=== PATIENT | male | born 1975 | race Caucasian/White ===

== ENCOUNTER 2024-08-22 13:26 | Emergency (ER) | payer OTHER, SELFPAY ==
[2024-08-22 13:55] VITALS: BP 124/90; PULSE 74; RESP 16; TEMP 36.8; O2SAT 94; BMI 27.4
--- NOTE | 2024-08-22 13:56 | ED.SKABFB ---
HPI - Skin/Abscess/Foreign Bdy General Chief complaint: Animal Bite Stated complaint: Cat bite Time Seen by Provider: 08/22/24 14:06 Source: patient and RN notes reviewed Mode of arrival: ambulatory Limitations: no limitations History of Present Illness ED Provider: Marbella Chapa PA-C HPI narrative: This is a 49-year-old male, with no known medical problems, who presents emergency department with complaints of cat bite. Patient states that he was bit by a stray cat approximately 1 hour ago. He is unsure of the vaccine status of this cat. His last tetanus shot was given to him 1 year ago. 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 He immediately rinse the wounds with warm soapy water for 5 minutes. Denies any other complaints or concerns at this time. MD complaint: other (Cat bite) Onset (ago): day(s) Tetanus up to date: yes Location: RUE Relieving factors: none Exacerbating factors: none Context: none Associated symptoms: denies other symptoms Treatments prior to arrival: none Related Data Previous Rx's ?Medication ?Instructions ?Recorded amoxicillin 875 mg-potassium 1 tab PO BID 5 days #9 tabs 08/22/24 clavulanate 125 mg tablet Allergies Allergy/AdvReac Type Severity Reaction Status Date / Time morphine [MORPHINE] Allergy Unknown HIVES Verified 08/22/24 13:58 Review of Systems Review of Systems: Yes all other systems are reviewed and are negative Constitutional: Constitutional: Reports as per [facility] Social History Social History Advance Directives: No Advance Directives Information Provided: Yes Physical Exam Vital Signs: Vital Signs: Last Vital Signs Temp 98.2 F 08/22/24 13:55 Pulse 74 08/22/24 13:55 Resp 16 08/22/24 13:55 BP 124/90 H 08/22/24 13:55 Pulse Ox 94 08/22/24 13:55 O2 Del Method Room Air 08/22/24 13:55 BMI result Body Mass Index 27.4 Const: General: cooperative, comfortable and no acute distress Orientation/consciousness: patient oriented x3 Limitations: no limitations HEENT: Head: Yes normal to inspection, Yes normocephalic and Yes atraumatic Ears: hearing grossly normal bilaterally General nose exam: Normal external nose present Face and sinus: Yes normal facial exam Mouth: Normal oral and palatal mucosa present, oropharynx normal and moist mucous membranes Throat: Yes posterior oropharynx normal Eyes: General: appearance normal, both eyes and all related structures Eyelids: Yes eyelids normal Conjunctivae: conjunctivae normal Sclerae: sclerae normal Pupils: Equal, round and reactive pupils present EOM: EOMs intact bilaterally Neck: Neck: Yes normal visual inspection, Yes full ROM and Yes no lymphadenopathy Lymphatic: no lymphadenopathy noted Chest: Chest palpation & inspection: normal inspection of the chest Resp: Effort & Inspection: normal respiratory effort and able to speak in complete sentences Auscultation: clear to auscultation bilaterally, no crackles, no rales, no rhonchi and no wheezes Cardio: Rate: regular rate Rhythm: regular rhythm Heart sounds: S1 normal heart sound present and S2 normal heart sound present GI: Inspection: Yes normal to inspection Skin: General skin exam: no rashes or lesions noted Trauma: no lacerations or abrasions Wounds: no wounds Neuro: General: patient oriented x3 and moves all extremities Cranial nerves: Yes Equal, round and reactive pupils present Extrem: Other: Right arm dorsal aspect, there are multiple puncture wounds noted, no surrounding edema, erythema or warmth. No drainage. No active bleeding. Strong radial pulse. General: Yes normal to inspection Left upper extremity: normal to inspection Right lower extremity: normal to inspection Left lower extremity: normal to inspection Medications Administered Discontinued Medications Generic Name Dose Route Start Last Admin Trade Name Freq PRN Reason Stop Dose Admin Amoxicillin/Clavulanate Potassium 875 mg 08/22/24 14:06 08/22/24 14:23 Amoxicillin/Potassium Clav 875 Mg Tablet PO 08/22/24 14:07 875 mg ONCE ONE Administration Rabies Vaccine 1 ml 08/22/24 14:06 08/22/24 14:23 Rabies Vaccine (Pcec)/Pf 1 Ml Vial IM 08/22/24 14:07 1 ml .ONCE ONE Administration Medical Decision Making Medical Decision Making MDM Narrative: This is a 49-year-old male who presents emergency department with complaints of cat bite. Patient arrives to the emergency department alert and oriented x4, he is well-appearing under no acute distress. Multiple puncture wounds noted to the right arm, dorsal aspect. Patient already had rabies series performed in the . Discussed with Dr. Almonte, given previous rabies vaccine status, pt only needs vaccine, no immunoglobulin warranted at this time. Will give rabies vaccine on day 0 and day 3. Will also start with Augmentin. Patient given infusion center information. Given strict return precautions. He understands and agrees with plan. Patient stable for discharge Differential Diagnosis Differential Diagnoses: The differential diagnosis associated with the presentation includes Cat bite, puncture wound, rabies prophylaxis, laceration Discharge Plan Discharge Clinical Impression: Cat bite Patient Disposition: Home, Self-Care Instructions: Animal Bite (ED), Rabies (ED) Additional Instructions: You were seen in the ER after being bit and scratched by a stray cat. Please keep wounds clean and dry. Please take prescribed Augmentin as directed. Finish the entire course. Watch for any signs of infection including but not limited to increased redness, swelling, fevers, chills. If any of these occur, please seek emergent care. Rabies follow up with the [facility]: Upon discharge from the ED today, you will be contacted by the Infusion Center to schedule your follow up Rabies vaccines. You will need a total of 1 more injection (Day 3 - wednesday) If for some reason you do not receive a call, please call the Infusion Center directly at [phone]. Follow up with your primary care provider after completion of the vaccine to have a titer drawn to ensure the vaccines effectiveness. Prescriptions: New amoxicillin-pot clavulanate 875-125 mg tablet 1 tab PO BID 5 Days Qty: 9 0RF Discharge Date/Time: 08/22/24 15:00 Print Language: Estonian
[2024-08-22] MEDS: Amoxicillin/Potassium Clav 875 MG TABLET PO (14:23)
[2024-08-22] MEDS: Rabies Vaccine (PCEC)/PF 1 ML VIAL IM (14:23)
--- OUTSIDE RECORDS SUMMARY | 2024-08-22 17:08 | XMS_ITS | Data Portability ---
Author Organization [facility], , [facility] Address [address] [place] [address] Care Team Providers Care Scrap Sawyer Name Role Phone KRISTEL CAMPBELL Urologist SHONA HARRELL Primary Care Provider Assessment Encounter Date Assessment Date Assessment LastModified by Organization Details LastModified Time 10/06/2023 10/06/2023 Visit 2 of 8 Re-eval Due: Short Term Goals In 4 weeks, patient will: 1. Lie on their right side without right shoulder pain. 2. Perform right shoulder abduction without painful arc. Orientation & Mobility Specialist Goals In 8 weeks, patient will: 1. Demonstrate symmetric pain free active, passive, and resisted motions of the right shoulder. 2. Play acoustic guitar for 30 minutes without right shoulder pain. 3. Demonstrate independence with comprehensive HEP. Subjective : I really feel the exercises, not in a painful way; they target the area of injury Objective : Therex : -reviewed HEP w/ pt, updated as below. -shoulder ER w/ RTB - no effort, d/c -low horiz abd w/ RTB -ecc biceps curl w/ RTB - no effort, d/c -biceps stretch hands behind back -low row w/ GTB -scap retraction Neuromuscular Re-ed : Manual Therapy : Assessment : Patient initially performs low row w/ bracing posture, performs in neutral posture following verbal and tactile cues for modifications. He feels that today's additions will be effective. Plan : follow up next week. Access Code: [email or web address] URL: [email or web address] Date: 10/06/2023 Prepared by: Apolonia Araya Exercises - Shoulder External Rotation and Scapular Retraction with Resistance - 1 x daily - 7 x weekly - 3 sets - 10 reps - Shoulder Flexion Serratus Activation with Resistance - 1 x daily - 7 x weekly - 3 sets - 10 reps - Chest and Bicep Stretch - Arms Behind Back - 3 x daily - 7 x weekly - 1 sets - 3 reps - 15 hold - Low Horizontal Abduction with Resistance - 1 x daily - 7 x weekly - 1-3 sets - 10 reps - Standing Bilateral Low Shoulder Row with Anchored Resistance - 1 x daily - 7 x weekly - 1-3 sets - 10 reps [email or web address] Not available 10/07/2023 19:38:56 10/13/2023 10/13/2023 Visit 3 of 8 Re-eval Due: Next visit : scap push ups Short Term Goals In 4 weeks, patient will: 1. Lie on their right side without right shoulder pain. 2. Perform right shoulder abduction without painful arc. Orientation & Mobility Specialist Goals In 8 weeks, patient will: 1. Demonstrate symmetric pain free active, passive, and resisted motions of the right shoulder. 2. Play acoustic guitar for 30 minutes without right shoulder pain. 3. Demonstrate independence with comprehensive HEP. Subjective : I notice my shoulder is irritated when I do this [pt demonstrates shoulder ext/horiz abd at 90+ deg of abd]. The exercises are still good. Objective : Therex : -reviewed HEP w/ pt, updated as below. -bent over row w/ 10# DB -reverse flye w/ 3# DB -shoulder circles w/ 1# DB - flex and abd - CW & CCW -ecc low horiz abd w/ RTB Neuromuscular Re-ed : Manual Therapy : Assessment : Patient requires visual and verbal cues to perform therex w/ good technique, occasional tactile cues for modifications. He feels that today's additions will be effective, no symptom irritation. Plan : follow up next week. Access Code: [email or web address] URL: [email or web address] Date: 10/13/2023 Prepared by: Apolonia Araya Exercises - Shoulder External Rotation and Scapular Retraction with Resistance - 1 x daily - 7 x weekly - 3 sets - 10 reps - Shoulder Flexion Serratus Activation with Resistance - 1 x daily - 7 x weekly - 3 sets - 10 reps - Chest and Bicep Stretch - Arms Behind Back - 3 x daily - 7 x weekly - 1 sets - 3 reps - 15 hold - Low Horizontal Abduction with Resistance - 1 x daily - 7 x weekly - 1-3 sets - 10 reps - Seated Single Arm Shoulder Circles with Dumbbell - 1 x daily - 7 x weekly - 1-3 sets - 10 reps [email or web address] Not available 10/13/2023 20:07:50 10/20/2023 10/20/2023 Visit 3 of 8 Re-eval Due: Next visit : scap push ups Short Term Goals In 4 weeks, patient will: 1. Lie on their right side without right shoulder pain. 2. Perform right shoulder abduction without painful arc. Halfway Goals In 8 weeks, patient will: 1. Demonstrate symmetric pain free active, passive, and resisted motions of the right shoulder. 2. Play acoustic guitar for 30 minutes without right shoulder pain. 3. Demonstrate independence with comprehensive HEP. Subjective : I woke up w/ some pain last night b/c I was lying on my R side weighted tossing (ie: horseshoes) still bothersome exercises feel good, especially [resisted shoulder ER and low horiz abd] Objective : -inc tension and mild TTP R teres major and teres minor, infraspinatus, supraspinatus, UT Therex : -reviewed HEP w/ pt, updated as below. -shoulder circles - flex and abd - CW & CCW -wall circles -scap retraction & depression -seated shoulder inferior glide Neuromuscular Re-ed : Manual Therapy : -STM and gentle TPR R teres major and teres minor, infraspinatus, supraspinatus, UT Assessment : Patient demonstrates shoulder circles w/ scapula protracted, reports more effort w/ scapula in neutral position. He requires visual and verbal cues to perform therex w/ good technique, w/ occasional tactile cues for modifications; no symptom irritation. Plan : follow up next week. Access Code: [email or web address] URL: [email or web address] Date: 10/13/2023 Prepared by: Apolonia Araya Exercises - Shoulder External Rotation and Scapular Retraction with Resistance - 1 x daily - 7 x weekly - 3 sets - 10 reps - Shoulder Flexion Serratus Activation with Resistance - 1 x daily - 7 x weekly - 3 sets - 10 reps - Chest and Bicep Stretch - Arms Behind Back - 3 x daily - 7 x weekly - 1 sets - 3 reps - 15 hold - Low Horizontal Abduction with Resistance - 1 x daily - 7 x weekly - 1-3 sets - 10 reps - Seated Single Arm Shoulder Circles with Dumbbell - 1 x daily - 7 x weekly - 1-3 sets - 10 reps - Standing Wall Ball Circles in Scaption with Mini Citizen Of [place] Ball - 1 x daily - 7 x weekly - 1-3 sets - 10 reps - Seated Shoulder Inferior [place] - 3 x daily - 7 x weekly - 1 sets - 3 reps - 15 hold [email or web address] Not available 10/20/2023 11:08:15 10/27/2023 10/27/2023 Visit 4 of 8 Re-eval Due: Next visit : Short Term Goals In 4 weeks, patient will: 1. Lie on their right side without right shoulder pain. 2. Perform right shoulder abduction without painful arc. Halfway Goals In 8 weeks, patient will: 1. Demonstrate symmetric pain free active, passive, and resisted motions of the right shoulder. 2. Play acoustic [employer] for 30 minutes without right shoulder pain. 3. Demonstrate independence with comprehensive HEP. Subjective : my shoulder feels good this week I didn't do any exercises the whole week, but it was an active week still get some discomfort if I'm throwing, playing darts or horseshoes Objective : Therex : -reviewed HEP w/ pt, updated as below. -shoulder circles w/ scap retraction CW & CCW -row w/ RTB, w/ GTB -shoulder ext w/ RTB, w/ GTB -bent over row w/ 15# DBs -bent over triceps ext w/ 5# DBs Neuromuscular Re-ed : -postural neutral - standing, bent-over position Manual Therapy : Assessment : Patient requires verbal and tactile cues to perform row w/ recruitment of middle trap and w/o thoracic ext. No symptom irritation. He continues to experience difficulty w/ identification of postural neutral w/o external cues, feels that today's additions will be beneficial. Plan : follow up next week. Access Code: [email or web address] URL: [email or web address] Date: 10/13/2023 Prepared by: Apolonia Araya Exercises - Shoulder External Rotation and Scapular Retraction with Resistance - 1 x daily - 7 x weekly - 3 sets - 10 reps - Shoulder Flexion Serratus Activation with Resistance - 1 x daily - 7 x weekly - 3 sets - 10 reps - Chest and Bicep Stretch - Arms Behind Back - 3 x daily - 7 x weekly - 1 sets - 3 reps - 15 hold - Low Horizontal Abduction with Resistance - 1 x daily - 7 x weekly - 1-3 sets - 10 reps - Seated Single Arm Shoulder Circles with Dumbbell - 1 x daily - 7 x weekly - 1-3 sets - 10 reps - Standing Wall Ball Circles in Scaption with Mini Citizen [place] Ball - 1 x daily - 7 x weekly - 1-3 sets - 10 reps - Seated Shoulder Inferior [place] - 3 x daily - 7 x weekly - 1 sets - 3 reps - 15 hold - Standing Bilateral Low Shoulder Row with Anchored Resistance - 1 x daily - 7 x weekly - 3 sets - 10 reps - Shoulder extension with resistance - Neutral - 1 x daily - 7 x weekly - 3 sets - 10 reps - Standing Bent Over Triceps Extension - 1 x daily - 7 x weekly - 3 sets - 10 reps [email or web address] Not available 10/27/2023 17:01:02 Plan of Treatment Reminders Order Date Submit Date Provider Last Modified By Organization Details Last Modified Time Details Appointments LAB Follow-Up 2024 07:00A M [facility] Lab Not available Not available Not available Wellness Visit 30 2024 01:45P M Theo Lambert MD Not available Not available Not available Lab None recorded. Referral None recorded. Procedures None recorded. Surgeries None recorded. Imaging None recorded. Medication Orders None recorded. Patient TargetsNo targets recorded. Patient InstructionsNo instructions recorded. Reason for Referral None Reported. Problems Name Problem SNOMED Code Status Onset Date Resolution Date Notes Provider Name and Address Organization Details Recorded Time Panic disorder 430562223 Active Rasheed Hendricks MD [address] [place] [address], [phone] , [facility] 5 15:56:11 Fear of flying 248099452 Active 2021 Shona Harrell MD [address] [place] [address], [phone] , [facility] 2 09:57:35 Sleep apnea 51207020 Active 2021 Mild to moderate - tx recommende d - pt hasn't f/u. Will do so. Kristy Gordillo, BELÉN [address] [place], [address] , [facility] 10:31:18 [place] us polyp of colon 526115418 Active 05/2022 Shona Harrell MD [address] [place], [address] , [facility] 13:38:29 Problem Notes None recorded. Procedures Surgical History Date Name Laterality Status Provider Name and Address Organization Details Recorded Time 10/27/19 67894: Therapeutic Exercise completed Apolonia Andino, PT [address] [place], [address], [facility] 10/27/2023 17:00:02 10/27/19 24 Neuromuscular re-education completed Apolonia Andino, PT [address] [place], [address], [facility] 10/27/2023 17:00:10 10/20/19 24 37154: Therapeutic Exercise completed Apolonia Andino, PT [address] [place], [address], [facility] 10/20/2023 11:02:48 10/20/19 24 85885: Manual Therapy completed Apolonia Andino, PT [address] [place], [address], [facility] 10/20/2023 11:02:53 10/13/19 24 52247: Therapeutic Exercise completed Apolonia Andino, PT [address] [place], [address], [facility] 10/13/2023 09:02:38 10/06/19 24 04191: Therapeutic Exercise completed Apolonia Andino, PT [address] [place], [address], [facility] 10/07/2023 19:34:42 09/28/19 24 Physical Activity Counselling completed Apolonia Andino, PT [address] [place], [address], [facility] 09/27/2023 19:00:36 09/28/19 24 34220: PT Eval Low Complexity completed Apolonia Andino, PT [address] [place], [address], [facility] 09/27/2023 19:00:36 09/28/19 24 Treatment and Advice completed Apolonia Andino, PT [address] [place], [address], [facility] 09/30/2023 18:13:21 01/02/20 21 prevention-cardio vascular risk reduction counseling completed Jen Arriaga [facility] 12/31/2020 16:35:38 01/02/20 21 prevention-annual alcohol misuse screening completed Jen Arriaga MA [facility] 12/31/2020 16:35:38 09/11/19 21 Physical Activity Counselling completed Apolonia Andino, PT [address] [place], [address], [facility] 09/10/2020 08:09:33 09/11/19 21 38444: PT Eval Low Complexity completed Apolonia Andino, PT [address] [place], [address], [facility] 09/10/2020 08:09:35 09/11/19 21 Treatment and Advice completed Apolonia Andino, PT [address] [place], [address], [facility] 09/10/2020 13:51:17 05/21/20 18 POC Urinalysis Testing completed Dyan Frias CMA [facility] 05/21/2018 12:50:36 05/24/18 96 Appendectomy completed Shira Flower MA [facility] 07/05/2012 10:08:17 Imaging Results None recorded. Procedure Notes None recorded. Medical Equipment None Reported. Allergies Allergen ID Allergen Name Allergen Category Reaction Reaction Severity Criticality Documentation Date Start Date Code Code System Note Provider Name and Address Organization Details Recorded Time 529507 morphine medicatio n hives Not available Not available 07/05/2012 7052 RxNorm LISA Godinez, [facility] 3 10:06:49 Medications Name Sig Start Date Stop Date Status Note LastModified by Organization Details LastModified Time binaxnow covid-19 ag card home test kit 07/22 completed Not Available Not Available Not Available valacyclov ir 1 gram tablet Take 1 tablet 3 times a day by oral route for 7 days. 01/05 completed Not Available Not Available Not Available propranolo l 10 mg tablet TAKE 1 TABLET BY MOUTH EVERY DAY NEEDED FOR ANXIETY SYMPTOMS 01/05 completed Not Available Not Available Not Available alprazolam 0.25 mg tablet TAKE 1 TABLET BY MOUTH DAILY NEEDED FOR ANXIETY AND PANIC ATTACK 09/16 completed 09/09/20 no longer taking/ mlb Not Available Not Available Not Available sertraline 25 mg tablet TAKE 1 TABLE BY MOUTH DAILY FOR 2 WEEKS, THEN INCREASE TO 2 TABS DAILY IF NO IMPROVEM ENT 2024 active CUORT ESY FILL Not Available Not Available Not Available lidocaine HCl 2 % mucosal solution Magic Mouthwas h preparat ion (Lidocai ne 2% + Diphenhy dramine 12.5mg/5 mL + Maalox or Mylanta) 60mL each 2013 active Not Available Not Available Not Avai lable lorazepam 1 mg tablet TAKE 1/2 TO 2 TAB 1 HOUR BEFORE FLIGHT. MAY REPEAT DOSE IN 2-3 HOURS IF LONG FLIGHT 08/11 completed Not Available Not Available Not Available tadalafil 5 mg tablet TAKE 1 TABLET BY MOUTH ONCE DAILY NEEDED FOR 30 DAYS 08/11 completed Not Available Not Available Not Available oxycodone 10 mg tablet Take 1 tablet every 4 hours by oral route for 3 days. 09/16 completed 09/09/20 no longer taking/ mlb Not Available Not Available Not Available COVID-19 test specimen collection TEST DIRECTED TODAY 06/16 completed Not Available Not Available Not Available Vitals Date Recorded Body height Body mass index (BMI) Body weight Heart rate Systolic blood pressure Diastolic blood pressure Provider Name and Address Organization Details Last Updated DateTime 5 177.8 cm 27.5 kg/m2 73003.7 4 g 72 /min 118 mm[Hg] 76 mm[Hg] Liberty Shelkey, MA [facility] 5 09:25:32 Social History Question Answer Notes LastModified by Organizat ion Details LastModified Time Tobacco Smoking Status Former Smoker 3-4 daily Quit around 2019 after 26 years of daily use, 5 to 8 cigs per day Romaine Mason, [facility] null, [facility] 08/18/2022 09:58:53 What Is Your Level Of Alcohol Consumption? Occasional Rare [email or web address] Information not available 11/06/2021 Do You Wear A Helmet When Biking? No N/a [email or web address] Information not available 01/05/2022 What Is Your Level Of Caffeine Consumption? Moderate 3-4 Decafe Daily [email or web address] Information not available 01/08/2023 How Much Tobacco Do You Chew? None Information not available 07/05/2012 Are You Currently Employed? Yes Information not available 01/01/2021 What Type Of Diet Are You Following? VEGETARIAN Information not available 07/05/2012 Education 4 Year College Information not available 07/05/2012 What Is The Highest Grade Or Level Of School You Have Completed Or The Highest Degree You Have Received? 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 Yes Dad Dx With Lung Cancer 01/08/23 Mk Lives W And Kids Information not available 01/08/2023 How Many Days In The Past Year Have You Had A Heavy Drinking Consumption (4+ Female, 5+ Male)? 0 Information not available 07/05/2012 Are There Any Guns Present In Your Home? No Information not available 07/05/2012 Do You Use Insect Repellent Routinely? Yes Information not available 01/01/2021 Live Alone Or With Others? With Others Information not available 07/05/2012 Patient Has Health Care Proxy Signed And In Chart No Information not available 07/05/2012 Marital Status Informatio n not available 01/01/2021 What Was The Date Of Your Most Recent Tobacco Screening? 06/06/2024 Information not available 06/06/2024 How Many Children Do You Have? 0 Information not available 07/05/2012 What Is Your Current Pack Years? 10packyears Information not available 06/06/2024 What Is Your Relationship Status? Information not available 01/01/2021 Do You Use Your Seat Belt Or Car Seat Routinely? Yes Information not available 01/01/2021 Seat Belts Used Routinely Yes Information not available 07/05/2012 Are You Sexually Active? Yes Information not available 07/05/2012 Smoke Alarm In Home Yes Information not available 07/05/2012 Do You Have Smoke And Carbon Monoxide Detectors In Your Home? Yes Information not available 01/01/2021 Are You Passively Exposed To Smoke? No Information not available 01/01/2021 General Stress Level Low Information not available 09/09/2020 Do You Use Any Illicit Or Recreational Drugs? No [email or web address] Information not available 01/08/2023 Do You Use Sunscreen Routinely? Yes Information not available 01/01/2021 How Many Years Have You Smoked Tobacco? 26 Information not available 09/09/2020 Do You Or Have You Ever Used Any Other Forms Of Tobacco Or Nicotine? No [email or web address] Information not available 01/05/2022 How Many Days In The Past Year Have You Consumed 5 Or More Drinks? 0 Information not available 01/05/2022 Sex: Male Functional Status Question Answer Note LastModified by Organizat ion Details LastModified Time What is your exercise level? Moderate walk 1.5 hours/day Information not available 01/05/2022 Mental Status None recorded. Family History Relationship Description Onset Age of this Age Resolved Age Notes LastModified by Organization Details LastModified Time Father Diabetes mellitus heart attack 50 (previ ously record ed as Diabet es) [email or web address] Not available 01/02/2013 03:01:25 Father Hyperlipidem ia [email or web address] Not available 01/02/2013 03:01:25 Father Heart disease [email or web address] Not available 01/02/2013 03:01:25 Father Malignant tumor of lung 76 Not available 2022 09:32:21 Mother Hyperlipidem ia stroke 2012 [email or web address] [id number] Not available 01/02/2013 03:01:25 Paternal Grandfather Heart disease [email or web address] [id number] Not available 01/02/2013 03:01:25 Maternal Grandmother Hypertensive disorder previo usly record ed as Hypert ension [email or web address] [id number] Not available 01/02/2013 03:01:25 Medical History No medical history recorded. Immunizations Vaccine Type Date Status Note Provider Nam e and Address Organization Details Recorded Time Tdap 3 completed Not Available [facility] 06/10/2019 02:32:58 Td (adult), 5 Lf tetanus toxoid, preservative free, adsorbed 3 completed Kristy Gordillo NP [address] [place], [address], [facility] 08/22/2022 14:50:47 COVID-19, mRNA, LNP-S, PF, 100 mcg/0.5mL dose or 50 mcg/0.25mL dose [facility] 08:56:54 COVID-19, mRNA, LNP-S, PF, 100 mcg/0.5mL dose or 50 mcg/0.25mL dose 1 [facility]/01/2021 08:57:02 Influenza, split virus, trivalent, PF 5 completed ROMAINE Hudson, [employer]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[employer] [address] [place], [address], [facility] 06/06/2024 09:51:04 COVID-19, mRNA, LNP-S, PF, 100 mcg/0.5mL dose or 50 mcg/0.25mL dose 1 [facility] 09:26:08 Past Encounters Encounter ID Performer Location Encounter Start Date Encounter Closed Date Diagnosis/Indication Diagnosis SNOMED-CT Code Diagnosis ICD10 Code Diagnosis Note [id number] Rasheed Hendricks MD , [facility], [address] [place] [address] 07/05/2012 09:42:37 07/05/2012 10:52:55 [id number] Rasheed Hendricks MD , [facility], [address] [place] [address] 02/13/2013 09:10:42 02/13/2013 10:02:45 Panic disorder [id number] Occasional symptoms of palpitatio ns, sweating and hyperventi lation. Two triggers are crowded situation and flying. Does not occur frequently , but concerned as he has an upcoming wedding and honeymoon planned for [place]. Denies depression . Discussed about maintenanc e medication vs. abortive medication . Previously tried Alprazolam with improvemen t. Low-dose Alprazolam prescribed . Potential adverse effects discussed. Advised to avoid alcohol use while on this medication . Patient advised to contact the clinic if symptoms become more frequent. At which time, we will consider a maintenanc e medication (SSRI) or consider beta-block er. [id number] Jennifer Kingston MA , [facility], [address] [place] [address] 05/29/2013 11:21:35 05/29/2013 13:10:35 Elevated blood-pressure reading without diagnosis of hypertension 559290885 Slightly elevated BP. Currently with cold symptoms and decongesta nt use. Continue to monitor for BP away from the office. Low salt diet and ample oral hydration recommende d. Pharyngitis [id number] Pa tient with clinical presetatio n of viral upper respirator y infection. No clinical evidence of bacterial pharyngiti s. No benefit of anti-viral or antibiotic treatment discussed. No hemodynami c instabilit y. Supportive care with ample oral hydration and rest discussed. Advised on saline gargle and decongesta nt use. Magic Mouthwash as needed for throat pain. Strategies to minimize post-nasal drips discussed. Advised to contact the clinic if no improvemen t in 3-4 days. Indication s for UC/ER use discussed. [id number] Shanika Adams , [facility], [address] [place] [address] 04/01/2014 10:14:19 04/01/2014 11:39:13 Herpes zoster 0203025 [id number] Kalina Adams PA-C , [facility], [address] [place] [address] 05/21/2018 12:18:04 05/21/2018 12:55:26 Kidney stone 38171554 N20.0 - urine without sign of infection- stop vicodin, start oxycodone- can alternate with ibuprofen, up to 800mg three times per day taken with food- strain urine to catch stone for testing- continue with good hydration- return to office if symptoms are not improving- to ER with fever or worsening pain [id number] Shona Harrell MD , [facility], [address] [place] [address] 09/09/2020 10:57:44 09/09/2020 11:24:23 Impingement syndrome of right shoulder region 3119618961 65596 M75.41 Recommend ibuprofen 600mg three times a day. If not improving with PT, sports med please let us know [id number] Apolonia Andino, PT Physical Therapy, [facility] [address] [place] [address] 09/10/2020 08:29:29 09/10/2020 15:10:59 Impingement syndrome of right shoulder region 1353046577 69192 M75.41 Patient is a 45-year old {{female m nisha*}} who presents to physical therapy with a year-long history of R shoulder pain which has recently worsened. Physical examinatio n revealed decreased and painful R ER and IR AROM; pain during resisted R shoulder IR and ER as well as resisted R elbow flexion; and pain during Lift Off test, Empty Can test at 90 deg abd, and Vera-Ke nnedy test. Findings most consistent with tendinosis of the right biceps, supraspina tus and subscapula ris muscles. Patient has {{signific ant* moder ate mild}} functional limitation in their {{activiti es of daily living act ivities of daily living and work capacity* activities of daily living and exercise capacity a ctivities of daily living and recreation }}. {{His* Her Their}} primary limitation s are with sleeping through the night, reaching overhead or out to the side, and playing guitar for longer than 10 minutes. Skilled physical therapy is indicated to safely and progressiv alber address impairment s and functional limitation s as outlined below. Patient is a {{good* fa ir poor}} candidate for physical therapy due to active lifestyle, good support system, and motivation to actively participat e in {{his* her their}} plan of care. Short Term Goals: In 2 weeks, patient will: 1. Report sleeping through the night. 2. Perform R shoulder abd without pain. Orientation & Mobility Specialist Goals: In 4-6 weeks, patient will: 1. Demonstrat e symmetric pain free active, and resisted motions of the right shoulder. 2. Play guitar for 30 minutes without R shoulder pain. 3.Demonstr ate independen ce with HEP for RTC strengthen ing, and self care techniques to decrease risk of recurrent symptoms. Treatment Plan: Patient to return for {{ 6 8 10 *}} visits over {{ 8 12*} } weeks. We expect significan t change in pain, impairment and function in this time frame. Treatment to Include: Continuing assessment , therapeuti c exercise, patient education, HEP (initiated ), manual therapy PRN, modalities PRN. [id number] Elpidio Russo MD Sports Medicine, [address] [address] 09/16/2020 07:28:55 09/17/2020 08:47:47 Shoulder pain [id number] M25.511 Kenrick is a 45-year-ol d male with right shoulder pain that I believe is due to impingemen t syndrome and rotator cuff tendinosis . He may also have a partial thickness rotator cuff tearing causing some of his symptoms. I reviewed all of this with him today as well as discussing options for treatment both short and long-term. We discussed the use of NSAIDs and physical therapy as well as the possibilit y of a corticoste roid injection or potential surgery in the future. He has been given referral to physical therapy by his primary care provider which she has just started. I have advised at this time that he continue with his physical therapy and follow up with me in 8 weeks for evaluation . If he is having persistent symptoms at that time he may benefit from a subacromia l corticoste roid injection. [id number] Rasheed Hendricks MD , [facility], [address] [place] [address] 01/01/2021 08:48:45 01/02/2021 14:57:20 Adult health examination [id number] Z00.00 See Risk Assessment and Lifestyle Change Counseling section above. Home/vehic le safety discussed. Counseling 057291481 Z71 .9 including cardiovasc ular risk reduction counseling Depression screening 171 075509 Z13.31 depression screening tool administer ed, entered into emr, scored and discussed, time greater than 7.5 minutes Screening for alcohol abuse 957069362 Z13.39 Blepharospasm 82895450 G 24.5 Occasional right lower lid spasms. Check labs. EOMI. Pain of ri ght shoulder joint [id number] M25.511 Doing better. Had one virtual PT session. Discussed in-person evaluation if worsening symptoms. WIll monitor. Home exercises. Anxiety 00303318 F41.9 Increased anxiety with flying and driving. Previously tried Alprazolam , but caused significan t sedation. Trial of Propranolo l discussed. Potential adverse effects reviewed. Advised to contact the clinic if no improvemen t. Sleep apnea 01664546 G47 .30 Loud snoring and daytime somnolence . Referral for PSG. 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 Reviewed side effects, public health concerns, dosing, Advised try before your trip so you know how you react to the medication [id number] ROBERT Patrick FP, [facility], [address] [place] [address] 11/06/2021 11:32:00 11/12/2021 16:01:53 Screening for malignant neoplasm of colon 740601267 Z12.11 pt will discuss with provider at upcoming pha Backache [id number] M54.9 by hx exam- suggests muscle strain- sx tx ice alternatin g with heat, f/u if not improving in coming 1-2 wks-sooner any worsening Kidney stone 99276141 N2 0.0 PMH- UA negative for any blood- no pain in flank area [id number] Shona Harrell MD , [facility], [address] [place] [address] 01/05/2022 10:18:00 01/05/2022 11:10:17 Adult health examination 270207802 Z00.00 please make an eye exam. you are scheduled for your colonoscop y. Your walking daily with your will prolong your life! Talked about maintainin g current weight rather than continuing to gain Counseling 677544962 Z71 .9 including cardiovasc ular risk reduction counseling Depression screening 171 295986 Z13.31 depression screening tool administer ed, entered into emr, scored and discussed, time greater than 7.5 minutes Screening for alcohol abuse 570881062 Z13.39 Sleep apnea 98541966 G47 .30 Please contact Sleep Medicine; your test was positive and they did recommend treatment [id number] Leticia Espitia MD , [facility], [address] [place] [address] 07/22/2022 14:05:08 07/22/2022 15:41:42 Pain in throat 675183586 R07.0 sore throatstar arnulfo mild URI congestion that resolvedno w mostly sore throat, waking at night, painful to swallowred and small vesicle on examrapid strep negativewi ll send culture to reassuread vised likely viralinstr sx care- gargle warm salt water, cepacol lozenges, throat coat tea, practice nasal breathingo jairo to use tylenol and ibuprofen for pain or benadryl to sleepf/u if new or concerning sx [id number] Kristy Gordillo NP , [facility], [address] [place] [address] 08/18/2022 09:28:53 08/18/2022 10:36:44 Active or passive immunization 720477983 Z23 Tetanus administer ed today Erectile dysfunction 860 259364 F52.21 Ongoing since golf course keeper y sx startedDis cussed options and pt opts for tadalafil. Will evaluate for other risk factors that would impact blood flow or nerve function. Reviewed risks and benefits of Viagra. Discussed rare but serious side effects of priapism. Reviewed severe interactio n with nitroglyce rin. Patient advised he may use as little of one quarter tablet or as much as one full tablet. Cold hands 044619910 R20 .8 No personal or family hx of raynauds. Obstructiv e sleep apnea syndrome 10417780 G47.33 Had eval in September 2021, was dx with mild to moderate sleep apneaSome question as to whether current dizziness and ?circulato ry issues could be as a result of untreated moderate sleep apneaPt given phone number for Sleep Medicine and encouraged to f/u Postural dizziness [id number] R42 Negative orthostati cs. 120/68 (lying down) 118/68 (standing) NL PEEncourag ed f/u with PCP, encouraged pt to f/u re untreated sleep apnea and we may consider neuro or vascular referral if no sx improvemen t with acquisitio n of CPAP [id number] Shona Harrell MD , [facility], [address] [place] [address] 01/08/2023 09:01:24 01/08/2023 15:36:51 Adult health examination 520436606 Z00.00 please make an eye exam. Your walking daily with your will prolong your life! Depression screening 171 179216 Z13.31 depression screening tool administer ed Screening for alcohol abuse 272048248 Z13.39 Alcohol use screening tool administer ed Anxiety 86561850 F41.9 Discussed options such as propranolo l, benzo's, SSRI's. Discussed sedation and addictive potential of alprazolam . Reviewed mediation, relation breathing. You want to think about it and get back to me if you are interested in new med [id number] KENRICK COPPOLA DO , [facility], [address] [place] [address] 08/12/2023 07:50:40 08/12/2023 13:33:24 Pain of right shoulder joint 6123770334 3353568 M25.511 48 year old male presenting for shoulder pain that began following free weight lifting exercise during pandemic. PE notable for Positive vera testing. We discussed baseline shoulder imaging and referral to physical therapy to which patient was agreeable. Patient can utilize NSAIDs as needed for discomfort . Advised icing at the end of each day for 15 minutes following activity [id number] Apolonia Andino, PT Physical Therapy, [address] [address] 09/28/2023 15:48:14 10/01/2023 09:51:28 Pain of right shoulder joint 4310427042 [id number] M25.511 Patient is a 48-year old male who presents to physical therapy with right shoulder pain which is improving. Physical examinatio n revealed a painful arc during abduction AROM; pain and mild weakness during resisted testing, and pain during Lift Off test. Findings most consistent with tendinosis of the right subscapula ris and biceps muscles. Patient has mild functional limitation in their activities of daily living and work capacity. His primary limitation s are with sleeping through the night, reaching overhead or out to the side, and playing guitar for longer than 10 minutes. Skilled physical therapy is indicated to safely and progressiv alber address impairment s and functional limitation s as outlined below. Patient is a good candidate for physical therapy due to active lifestyle, good support system, and motivation to actively participat e in his plan of care Short Term GoalsIn 4 weeks, patient will:1. Lie on their right side without right shoulder pain.2. Perform right shoulder abduction without painful arc. Halfway GoalsIn 8 weeks, patient will:1. Demonstrat e symmetric pain free active, passive, and resisted motions of the right shoulder.2 . Play acoustic guitar for 30 minutes without right shoulder pain.3. Demonstrat e independen ce with comprehens kai HEP. Treatment Plan: Patient to return for 8 visits over 8 weeks. We expect significan t change in pain, impairment and function in this time frame. Treatment to Include: Continuing assessment , therapeuti c exercise, neuromuscu lar re-educati on, patient education, HEP (initiated ), manual therapy PRN, modalities PRN, taping PRN. [id number] Apolonia Andino, PT Physical Therapy, [address] [address] 10/06/2023 13:54:32 10/08/2023 07:37:49 Pain of right shoulder joint [id number] M25.511 Treatment Plan: Patient to return for 8 visits over 8 weeks. We expect significan t change in pain, impairment and function in this time frame. Treatment to Include: Continuing assessment , therapeuti c exercise, neuromuscu lar re-educati on, patient education, HEP (initiated ), manual therapy PRN, modalities PRN, taping PRN. [id number] Apolonia Andino, PT Physical Therapy, [address] [address] 10/13/2023 08:49:29 10/14/2023 08:09:20 Pain of right shoulder joint [id number] M25.511 Treatment Plan: Patient to return for 8 visits over 8 weeks. We expect significan t change in pain, impairment and function in this time frame. Treatment to Include: Continuing assessment , therapeuti c exercise, neuromuscu lar re-educati on, patient education, HEP (initiated ), manual therapy PRN, modalities PRN, taping PRN. [id number] Apolonia Andino, PT Physical Therapy, [address] [address] 10/20/2023 08:54:23 10/20/2023 11:11:19 Pain of right shoulder joint [id number] [id number] M25.511 Treatment Plan: Patient to return for 8 visits over 8 weeks. We expect significan t change in pain, impairment and function in this time frame. Treatment to Include: Continuing assessment , therapeuti c exercise, neuromuscu lar re-educati on, patient education, HEP (initiated ), manual therapy PRN, modalities PRN, taping PRN. [id number] Apolonia Andino, PT Physical Therapy, [address] [address] 10/27/2023 08:50:25 10/28/2023 09:46:42 Pain of right shoulder joint 0195383812 [id number] M25.511 Treatment Plan: Patient to return for 8 visits over 8 weeks. We expect significan t change in pain, impairment and function in this time frame. Treatment to Include: Continuing assessment , therapeuti c exercise, neuromuscu lar re-educati on, patient education, HEP (initiated ), manual therapy PRN, modalities PRN, taping PRN. [id number] ROMAINE LAO, AP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-BC , [facility], [address] [place] [address] 06/06/2024 09:17:20 06/07/2024 09:09:54 Active or passive immunization 353034656 Z23 Flu updated Skin lesion 88247816 L98 .9 [place] macule with flaky border on the arm, present for about a month. No associated pain, itching, or history of injury. Not concerning for basal cell carcinoma, melanoma, squamous cell, vesicular or fungal lesion. - No immediate interventi on required.- Monitor for changes and report any new symptoms. Health Concerns Section Related Observation LastModified by Organization Detai ls LastModified Time None Recorded Concern Status LastModified by Organization Details LastModified Time None Recorded Advance Directives Directive None Recorded Payers Encounter Date Sequence Insurance Name Policy Number Policy Bray Covered Member ID Bray Member ID Guarantor Name 10/06/2023 1 [facility] [employer] [place] [employer] (HMO) [id number] Kenrick M Darvin [id number] 2 Kenrick M Darvin 10/13/2023 1 [facility] [employer] [place] [employer] (HMO) [id number] Kenrick M Darvin [id number] 2 Kenrick M Darvin 10/20/2023 1 [facility] [employer] [place] (HMO) [id number] Kenrick M Darvin [id number] 2 Kenrick M Darvin 10/27/2023 1 [facility] [employer] [place] (HMO) [id number] Kenrick M Darvin [id number] 2 Kenrick M Darvin 06/06/2024 1 [facility] [employer] [place] [employer] (HMO) [id number] Kenrick M Darvin [id number] 2 Kenrick M Darvin Notes Date Note Type Note Provider Name and Address Organization Details Recorded Time 06/06/2024 text/html Skin check right forearm- ongoing about 1 month- fading over time. The patient presents with a skin lesion on their arm that has been present for about a month. They describe it as looking like a burn, but it is not painful or itchy. The lesion has a flaky border and is about half a centimeter in diameter. The patient has limited sun exposure and no history of skin cancer. They noticed the lesion about a month ago and it has not worsened since then. The patient denies any preceding injury, itchiness, or other symptoms. ROMAINE CHOE , [facility]-[address], [place], [address], [facility] 06/06/2024 09:53:08
== END 2024-08-22 15:00 | disposition home or self-care (01) ==
PROVIDERS: Emergency Provider Emergency Medicine; PCP Family Medicine
DX: S41.151A Open bite of right upper arm, initial encounter (principal); W55.01XA Bitten by cat, initial encounter; Y93.89 Activity, other specified; Y92.9 Unspecified place or not applicable; Y99.9 Unspecified external cause status; Z23 Encounter for immunization; Z20.3 Contact with and (suspected) exposure to rabies
CPT/HCPCS: 90471; 90675; 99281; 99284

== ENCOUNTER 2024-08-24 14:48 | Inpatient (IN) | payer OTHER, SELFPAY ==
[2024-08-24 14:51] VITALS: BP 121/86; PULSE 72; RESP 16; TEMP 37; O2SAT 98; BMI 28.4
--- NOTE | 2024-08-24 14:53 | ED.GENADULT ---
HPI - General Adult General Chief complaint: Recheck/Abnormal Lab/Rx Stated complaint: follow up cat bite Time Seen by Provider: 08/24/24 15:18 Source: patient, family (), RN notes reviewed and old records reviewed Mode of arrival: ambulatory Limitations: no limitations History of Present Illness ED Provider: NHAN ALARCON PA-C HPI narrative: 49-year-old klilm-pqmc-zjzmmhqm male presents to the ED today for re-evaluation of right forearm cat bite. He was initially evaluated at our facility for this on 08/22/24. Rabies series was initiated and he was discharged home on Augmentin. States he has been compliant with antibiotics. No missed doses. He noticed that the redness has been increasing and he is now having pain on flexion of the wrist and supination of the right forearm. He has not noticed any red line up his right upper extremity. Denies fever, chills, numbness/tingling, weakness of the RUE. Of note, on arrival in ED, patient had suspected vagal response while getting blood drawn in triage. Became diaphoretic and syncopized while in the chair. He did not fall to the ground or strike his head. He had one episode of bilious emesis on re-gaining consciousness. He was immediately brought back to an ED bed. POC glucose was obtained and was noted to be 130. Related Data Home Medications ?Medication ?Instructions ?Recorded ?Confirmed sertraline 25 mg tablet mg PO 08/24/24 Previous Rx's ?Medication ?Instructions ?Recorded amoxicillin 875 mg-potassium 1 tab PO BID 5 days #9 tabs 08/22/24 clavulanate 125 mg tablet Allergies Allergy/AdvReac Type Severity Reaction Status Date / Time morphine [MORPHINE] Allergy Unknown HIVES Verified 08/24/24 14:54 Review of Systems Review of Systems: Yes all other systems are reviewed and are negative PMFSH Past Medical History Attestation statement: The following information was validated with the patient. Source: old records reviewed and nursing notes reviewed Social History Social History Unable to assess alcohol history related to: Unknown Smoked in Last 30 Days: No Use of substances other than those prescribed or required for medical reasons: No Advance Directives: Yes Advance Directives Information Provided: Yes Advance Directives on File: No Physical Exam ED Vital Signs: Vital Signs - 24 hr 08/24/24 14:51 08/24/24 15:29 08/24/24 17:52 Temperature 98.6 F 97.8 F 98.1 F Pulse Rate 72 70 72 Respiratory Rate 16 14 18 Blood Pressure 121/86 120/72 107/54 L Pulse Oximetry 98 97 98 Oxygen Delivery Method Room Air Room Air Room Air BMI result Body Mass Index 28.4 vital signs stable General: Well appearing, in no acute distress. Skin: +4 puncture wounds noted to dorsal aspect of right forearm with surrounding erythema. Marked with skin pen while in triage. No streaking. No noted drainage. Tender to palpation. No crepitus or palpable fluctuance. FROM intact to right wrist with noted pain on flexion. Pain on supination of the right forearm. 2+radial/ulnar pulse intact. Head: Normocephalic, atraumatic. EENT: Hearing is intact b/l. Conjunctiva clear. PERRLA. EOM intact. Moist mucous membranes.? Neck: Supple without LAD Cardiac: Chest wall symmetric. RRR Lungs: Normal respiratory effort without accessory muscle use. CTA bilaterally Abdomen: Soft, non-tender, non-distended. No rebound tenderness or guarding Back: No midline spinous or paraspinal tenderness. No step off deformity. Ext: +see above Neuro: AOx3. Normal speech. Ambulating with steady gait. Course Course Course Narrative: This is a rapid medical exam performed by Octavio Gore NP: Additional HPI, ROS, PE not included below will be deferred to primary provider. 08/24/24 14:54 Patient is a 49-year-old right hand dominant male seen here on 08/22 for cat bite to right forearm. He received rabies vaccine and was discharged on Augmentin. States redness has increased, and is having pain with movement of right wrist. Plan: labs Reevaluation(s) Reevaluation #1: 1705 -- CBC without leukocytosis or left shift. No anemia. H&H stable. Chemistry without acute electrolyte abnormality requiring intervention. POC glucose 130. No SHAI. Liver function at baseline. lactic wnl. > continued to report nausea. only one episode of vomiting. no improvement with zofran. will trial Reglan + Benadryl. IVF running. Unasyn given. blood cultures pending. > exam is not concerning for abscess. given worsening erythema despite outpatient antibiotics, will discuss admission with hospitalist. patient and agreeable. Medications Administered Discontinued Medications Generic Name Dose Route Start Last Admin Trade Name Live PRN Reason Stop Dose Admin Diphenhydramine HCl 25 mg 08/24/24 16:50 08/24/24 16:57 Diphenhydramine Hcl 50 Mg/Ml Vial IVPUSH 08/24/24 16:51 25 mg ONCE ONE Administration Sodium Chloride 1,000 mls @ 999 mls/hr 08/24/24 16:15 08/24/24 17:28 Ns IV 08/24/24 17:15 Infused .Q1H1M MINOR Infusion Ampicillin Sodium/Sulbactam 100 mls @ 200 mls/hr 08/24/24 16:12 08/24/24 17:03 Sodium 3 gm/ Sodium Chloride IV 08/24/24 16:41 Infused ONCE ONE Infusion Metoclopramide HCl 10 mg 08/24/24 16:50 08/24/24 16:57 Metoclopramide Hcl 10 Mg/2 Ml Vial IVPUSH 08/24/24 16:51 10 mg ONCE ONE Administration Ondansetron HCl 4 mg 08/24/24 15:26 08/24/24 15:34 Ondansetron Odt 4 Mg Tab.Rapdis TRANSLINGU 08/24/24 15:27 4 mg ONCE ONE Administration Medical Decision Making Medical Decision Making [facility] Narrative: 49-year-old grixw-swun-wpbgppuy male presents to the ED today for re-evaluation of right forearm cat bite. vital signs stable. on exam of RUE, there are 4 puncture wounds noted to dorsal aspect of right forearm with surrounding erythema. Marked with skin pen while in triage. No streaking. No noted drainage. Tender to palpation. No crepitus or palpable fluctuance. FROM intact to right wrist with noted pain on flexion. Pain on supination of the right forearm. 2+radial/ulnar pulse intact. Differential diagnosis includes cellulitis, animal bite. Lower suspicion for tenosynovitis, abscess, osteomyelitis. Labs, lactate, blood cultures ordered from triage. Plan for IV fluids, antiemetic and antibiotics with re-evaluation. Anticipate admission d/t failure of outpatient treatment. Differential Diagnosis Differential Diagnoses: The differential diagnosis associated with the presentation includes as above. Admission/Observation Consideration of admission/observation: Escalation of care including admission/observation considered patient admitted to medicine for cellulitc cat bite with failure out outpatient antibiotics Consult Healthcare Provider Management of the patient was discussed with: Hospitalist hospitalist dr. grove Lab Data MDM Lab Attestation statement: I reviewed the patient's lab results. as above. 08/24/24 15:11 08/24/24 15:11 Labs: Lab Results 08/24/24 08/24/24 Range/Units 15:11 15:28 WBC 7.0 (4.8-10.8) X10*3/uL RBC 5.59 (4.60-5.80) X10*6/uL Hgb 17.2 (14.0-18.0) g/dl Hct 49.3 (42.0-52.0) % MCV 88.2 (80.0-98.0) fL MCH 30.8 (27.0-33.0) pg MCHC 34.9 (31.0-36.0) g/dl RDW 12.2 (11.0-16.0) % Plt Count 204 (160-400) X10*3/uL MPV 9.7 (9.4-12.4) fL Immature Gran % (Auto) 0.3 (0.0-0.4) % Neut % (Auto) 57.0 (45-73) % Lymph % (Auto) 29.2 (20-40) % Thayer % (Auto) 9.9 (2-11) % Eos % (Auto) 3.0 (0-4) % Baso % (Auto) 0.6 (0-2) % Lymph # (Auto) 2.0 (1.2-4.9) X10*3/uL Thayer # (Auto) 0.7 (0.1-1.2) X10*3/uL Eos # (Auto) 0.2 (0.0-0.4) X10*3/uL Baso # (Auto) 0.0 (0.0-0.2) X10*3/uL Abs Immat Gran (auto) 0.02 (0.00-0.03) X10*3/uL Absolute Neuts (auto) 4.0 (2.0-8.3) x10*3/uL Absolute Nucleated RBC 0.000 (0.0-0.012) X10*3/uL Nucleated RBC % (auto) 0.0 (0.0-0.2) /100WBC Sodium 140 (135-145) mmol/L Potassium 4.1 (3.3-5.1) mmol/L Chloride 103 (96-108) mmol/L Carbon Dioxide 27 (22-29) mmol/L Anion Gap 14 (12-20) BUN 19 H (9-16) mg/dL Creatinine 0.83 (0.5-1.4) mg/dL Estim Creat Clear Calc 119.0 Estimated GFR > 60 POC Glucose 130 H (60-115) mg/dL Random Glucose 103 (60-115) mg/dL Lactic Acid 1.4 (0.5-2.0) mmol/L Calcium 10.2 (8.4-10.2) mg/dL Total Bilirubin 0.5 (0.0-1.0) mg/dL AST 31 (5-37) U/L ALT 37 (0-40) U/L Alkaline Phosphatase 91 (39-117) U/L Total Protein 8.0 (6.5-8.0) g/dL Albumin 4.5 (3.5-5.0) g/dL Independent Historian Clinical information obtained from an independent historian. History obtained from or confirmed by: Spouse () Prescription Management I considered prescription management with: Pain Medication and Antibiotic Social Determinants Patient?s care significantly limited by Social Determinants of Health including: Other Social Determinant of Health Critical Care Time Critical Care Time Critical Care Time: No Discharge Plan Discharge Clinical Impression: Cat bite, Cellulitis Patient Disposition: Admitted As Inpatient Print Language: Amharic
[2024-08-24 15:19] LABS: MANUAL DIFF FLAG NO
[2024-08-24 15:29] VITALS: BP 120/72; PULSE 70; RESP 14; TEMP 36.6; O2SAT 97
[2024-08-24 15:31] LABS: Basophils Percent Auto 0.6 % (0-2); Eosinophils Absolute Auto 0.2 X10*3/uL (0.0-0.4); Hematocrit 49.3 % (42.0-52.0); Hemoglobin 17.2 g/dl (14.0-18.0); Imm Gran Abs Auto 0.02 X10*3/uL (0.00-0.03); Imm Gran Pct Auto 0.3 % (0.0-0.4); Lymphocytes Percent Auto 29.2 % (20-40); Mean Corpuscular HGB Conc 34.9 g/dl (31.0-36.0); Mean Corpuscular Hemoglobin 30.8 pg (27.0-33.0); Mean Corpuscular Volume 88.2 fL (80.0-98.0); Mean Platelet Volume 9.7 fL (9.4-12.4); Monocytes Absolute Auto 0.7 X10*3/uL (0.1-1.2); Monocytes Percent Auto 9.9 % (2-11); Platelet Count 204 X10*3/uL (160-400); Red Blood Count 5.59 X10*6/uL (4.60-5.80); Red Cell Distribution Width 12.2 % (11.0-16.0)
[2024-08-24 15:31] LABS: Glucose, Whole Blood 130 mg/dL (60-115)
--- NOTE | 2024-08-24 15:33 | ECG_ITS ---
Test Reason : PRESYNCOPE Blood Pressure : */* mmHG Vent. Rate : 60 BPM Atrial Rate : 60 BPM P-R Int : 174 ms QRS Dur : 88 ms QT Int : 422 ms P-R-T Axes : 55 -21 15 degrees QTcB Int : 422 ms Normal sinus rhythm Septal infarct , age undetermined Abnormal ECG No previous ECGs available Referred By: Samara Porras Electronically Signed By: CAROLANN ASKEW
[2024-08-24 15:34] LABS: Lactic Acid 1.4 mmol/L (0.5-2.0)
[2024-08-24] MEDS: Ondansetron ODT 4 MG TAB.RAPDIS TRANSLINGU (15:34)
[2024-08-24 15:47] LABS: Alanine Aminotransferase 37 U/L (0-40); Albumin Level 4.5 g/dL (3.5-5.0); Anion Gap 14 (12-20); Aspartate Amino Transferase 31 U/L (5-37); Bilirubin Total 0.5 mg/dL (0.0-1.0); Blood Urea Nitrogen 19 mg/dL (9-16); Calcium 10.2 mg/dL (8.4-10.2); Carbon Dioxide 27 mmol/L (22-29); Chloride 103 mmol/L (96-108); Estimated Glomerular Filt Rate > 60; Glucose Random 103 mg/dL (60-115); Potassium 4.1 mmol/L (3.3-5.1); Sodium 140 mmol/L (135-145)
[2024-08-24 15:55] LABS: Alkaline Phosphatase 91 U/L (39-117)
[2024-08-24] MEDS: 0.9 % Sodium Chloride 1,000 ML 999 ML IV (16:22)
[2024-08-24] MEDS: Ampicillin Sodium/Sulbactam Na 3 GM in 0.9 % Sodium Chloride 100 ML IV ×2 (16:26→21:13)
--- OUTSIDE RECORDS SUMMARY | 2024-08-24 16:46 | XMS_ITS | Data Portability ---
Author Organization [facility], , [facility] Address [address] [place] [address] Care Team Providers Care Building Drafter Name Role Phone KRISTEL CAMPBELL Urologist SHONA HARRELL Primary Care Provider Assessment Encounter Date Assessment Date Assessment LastModified by Organization Details LastModified Time 10/06/2023 10/06/2023 Visit 2 of 8 Re-eval Due: Short Term Goals In 4 weeks, patient will: 1. Lie on their right side without right shoulder pain. 2. Perform right shoulder abduction without painful arc. Florist'S Decorator Goals In 8 weeks, patient will: 1. [...] : follow up next week. Access Code: [email or web address] URL: [email or web address] Date: 10/06/2023 Prepared by: Apolonia Araya Exercises [...] Perform right shoulder abduction without painful arc. Florist'S Decorator Goals In 8 weeks, patient will: 1. [...] : follow up next week. Access Code: [email or web address] URL: [email or web address] Date: 10/13/2023 Prepared by: Apolonia Araya Exercises [...] Perform right shoulder abduction without painful arc. Group Home Goals In 8 weeks, patient will: 1. [...] : follow up next week. Access Code: [email or web address] URL: [email or web address] Date: 10/13/2023 Prepared by: Apolonia Araya Exercises [...] Wall Ball Circles in Scaption with Mini Jamaican Ball - 1 x daily - 7 x weekly - 1-3 sets - 10 reps - Seated Shoulder Inferior [place] - 3 x daily - 7 x weekly - 1 sets - 3 reps - 15 hold [email or web address] Not available 10/20/2023 11:08:15 10/27/2023 10/27/2023 Visit 4 of 8 Re-eval Due: Next visit : Short Term Goals In 4 weeks, patient will: 1. Lie on their right side without right shoulder pain. 2. Perform right shoulder abduction without painful arc. Group Home Goals In 8 weeks, patient will: 1. Demonstrate symmetric pain free active, passive, and resisted motions of the right shoulder. 2. Play acoustic DRESSBOOMitar for 30 minutes without right shoulder pain. [...] : follow up next week. Access Code: [email or web address] URL: [email or web address] Date: 10/13/2023 Prepared by: Apolonia Araya Exercises [...] Wall Ball Circles in Scaption with Mini Jamaican Ball - 1 x daily - 7 x weekly - 1-3 sets - 10 reps - Seated Shoulder Inferior [place] - 3 x daily - 7 x [...] Details Appointments LAB Follow-Up 2024 07:00A M [facility] Lab Not available Not available Not available [...] Address Organization Details Recorded Time Panic disorder 767101127 Active Rasheed Hendricks MD [address] [place] [address], [address] , [facility] 5 15:56:11 Fear of flying 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 Will do so. Kristy Gordillo, BELÉN [address] [place], [address] , [facility] 10:31:18 [place]om[place] us polyp of colon 832244334 Active 05/2022 Shona Harrell MD [address] [place], [address] , [facility] 13:38:29 Problem Notes None recorded. Procedures Surgical History Date Name Laterality Status Provider Name and Address Organization Details Recorded Time 10/27/19 06726: Therapeutic Exercise completed Apolonia Andino, PT [address] [place], [address], [facility] 10/27/2023 17:00:02 10/27/19 24 Neuromuscular re-education completed Apolonia Andino, PT [address] [place], [address], [facility] 10/27/2023 17:00:10 10/20/19 24 77237: Therapeutic Exercise completed Apolonia Andino, PT [address] [place], [address], [facility] 10/20/2023 11:02:48 10/20/19 24 95975: Manual Therapy completed Apolonia Andino, PT [address] [place], [address], [facility] 10/20/2023 11:02:53 10/13/19 24 11208: Therapeutic Exercise completed Apolonia Andino, PT [address] [place], [address], [facility] 10/13/2023 09:02:38 10/06/19 24 75256: Therapeutic Exercise completed Apolonia Andino, PT [address] [place], [address], [facility] 10/07/2023 19:34:42 09/28/19 24 Physical Activity Counselling completed Apolonia Andino, PT [address] [place], [address], [facility] 09/27/2023 19:00:36 09/28/19 24 11196: PT Eval Low Complexity completed Apolonia Andino, PT [address] [place], [address], [facility] 09/27/2023 19:00:36 09/28/19 24 Treatment and Advice completed Apolonia Andino, PT [address] [place], [address], [facility] 09/30/2023 18:13:21 01/02/20 21 prevention-cardio vascular risk reduction counseling completed Jen Arriaga [facility] 12/31/2020 16:35:38 01/02/20 21 prevention-annual alcohol misuse screening completed Jen Arriaga MA [facility] 12/31/2020 16:35:38 09/11/19 21 Physical Activity Counselling completed Apolonia Andino, PT [address] [place], [address], [facility] 09/10/2020 08:09:33 09/11/19 21 02894: PT Eval Low Complexity completed Apolonia Andino, PT [address] [place], [address], [facility] 09/10/2020 08:09:35 09/11/19 21 Treatment and Advice completed Apolonia Andino, PT [address] [place], [address], [facility] 09/10/2020 13:51:17 05/21/20 18 POC Urinalysis Testing completed Dyan Frias CMA [facility] 05/21/2018 12:50:36 05/24/18 96 Appendectomy completed Shira Flower MA [facility] 07/05/2012 10:08:17 Imaging Results None recorded. Procedure Notes None recorded. Medical Equipment None Reported. Allergies Allergen ID Allergen Name Allergen Category Reaction Reaction Severity Criticality Documentation Date Start Date Code Code System Note Provider Name and Address Organization Details Recorded Time 232574 morphine medicatio n hives Not available Not available 07/05/2012 7052 RxNorm LISA Godinez, [facility] 3 10:06:49 Medications Name Sig Start Date [...] Updated DateTime 5 177.8 cm 27.5 kg/m2 80715.7 4 g 72 /min 118 mm[Hg] 76 mm[Hg] Liberty Shelkey, MA [facility] 5 09:25:32 Social History Question Answer Notes LastModified by Organizat ion Details LastModified Time Tobacco Smoking Status Former Smoker 3-4 daily Quit around 2019 after 26 years of daily use, 5 to 8 cigs per day Romaine Mason, [facility] null, [facility] 08/18/2022 09:58:53 What Is Your Level Of Alcohol Consumption? Occasional Rare [email or web address] Information not available 11/06/2021 Do You Wear A Helmet When Biking? No N/a Information not available 01/05/2022 What Is Your Level Of Caffeine Consumption? Moderate 3-4 Decafe Daily [email or web address] Information not available 01/08/2023 How Much Tobacco Do You Chew? None Information not available 07/05/2012 Are You Currently Employed? Yes Information not available 01/01/2021 What Type Of Diet Are You Following? VEGETARIAN Information not available 07/05/2012 Education 4 Year College Information not available 07/05/2012 What Is The Highest Grade Or Level Of School You Have Completed Or The Highest Degree You Have Received? [id number] [email or web address] Information not available 01/05/2022 What Is Your [...] Use Any Illicit Or Recreational Drugs? No [email or web address] Information not available 01/08/2023 Do You Use Sunscreen Routinely? Yes Information not available 01/01/2021 How Many Years Have You Smoked Tobacco? 26 Information not available 09/09/2020 Do You Or Have You Ever Used Any Other Forms Of Tobacco Or Nicotine? No [email or web address] Information not available 01/05/2022 How Many Days [...] 09:32:21 Mother Hyperlipidem ia stroke 2012 [id number] [id number] Not available 01/02/2013 03:01:25 Paternal Grandfather Heart disease [email or web address] [id number] Not available 01/02/2013 03:01:25 Maternal Grandmother Hypertensive disorder previo usly record ed as Hypert ension [email or web address] [id number] Not available 01/02/2013 03:01:25 Medical History No medical history recorded. Immunizations Vaccine Type Date Status Note Provider Nam e and Address Organization Details Recorded Time Tdap 3 completed Not Available [facility] 06/10/2019 02:32:58 Td (adult), 5 Lf tetanus toxoid, preservative free, adsorbed 3 completed Kristy Gordillo NP [address] [place], [address], [facility] 08/22/2022 14:50:47 COVID-19, mRNA, LNP-S, PF, 100 mcg/0.5mL dose or 50 mcg/0.25mL dose [facility] 08:56:54 COVID-19, mRNA, LNP-S, PF, 100 mcg/0.5mL dose or 50 mcg/0.25mL dose 1 [facility] 01/01/2021 08:57:02 Influenza, split virus, trivalent, PF 5 completed ROMAINE Hudson, [employer] [address] [place], [address], [facility] 06/06/2024 09:51:04 COVID-19, mRNA, LNP-S, PF, 100 mcg/0.5mL dose or 50 mcg/0.25mL dose 1 [facility] 06/16/2021 09:26:08 Past Encounters Encounter ID Performer Location Encounter Start Date Encounter Closed Date Diagnosis/Indication Diagnosis SNOMED-CT Code Diagnosis ICD10 Code Diagnosis Note [id number] Rasheed Hendricks MD , [facility], [address] [place] [address] 07/05/2012 09:42:37 07/05/2012 10:52:55 [id number] Rasheed Hendricks MD , [facility], [address] [place] [address] 02/13/2013 09:10:42 02/13/2013 10:02:45 Panic disorder 813693908 Occasional symptoms of palpitatio ns, sweating and hyperventi lation. Two triggers are crowded situation and flying. Does not occur frequently , but concerned as he has an upcoming wedding and honeymoon planned for [place]. Denies depression . Discussed about maintenanc e medication vs. abortive medication . Previously tried Alprazolam with improvemen t. Low-dose Alprazolam prescribed . Potential adverse effects discussed. Advised to avoid alcohol use while on this medication . Patient advised to contact the clinic if symptoms become more frequent. At which time, we will consider a maintenanc e medication (SSRI) or consider beta-block er. [id number] Jennifer Kingston MA , [facility], [address] [place] [address] 05/29/2013 11:21:35 05/29/2013 13:10:35 Elevated blood-pressure reading without diagnosis of hypertension 427873669 Slightly elevated BP. Currently with cold symptoms and decongesta nt use. Continue to monitor for BP away from the office. Low salt diet and ample oral hydration recommende d. Pharyngitis 750640143 Pa tient with clinical presetatio n of [...] days. Indication s for UC/ER use discussed. [id number] Shanika Adams , [facility], [address] [place] [address] 04/01/2014 10:14:19 04/01/2014 11:39:13 Herpes zoster 6046196 [id number] Kalina Adams PA-C , [facility], [address] [place] [address] 05/21/2018 12:18:04 05/21/2018 12:55:26 Kidney stone 18881486 N20.0 - urine without sign of infection- stop vicodin, start oxycodone- can alternate with ibuprofen, up to 800mg three times per day taken with food- strain urine to catch stone for testing- continue with good hydration- return to office if symptoms are not improving- to ER with fever or worsening pain [id number] Shona Harrell MD , [facility], [address] [place] [address] 09/09/2020 10:57:44 09/09/2020 11:24:23 Impingement syndrome of right shoulder region 3467396030 13134 M75.41 Recommend ibuprofen 600mg three times a day. If not improving with PT, sports med please let us know [id number] Apolonia Andino, PT Physical Therapy, [facility] [address] [place] [address] 09/10/2020 08:29:29 09/10/2020 15:10:59 Impingement syndrome of right shoulder region 2704087648 37076 M75.41 Patient is a 45-year old {{female [...] 2. Perform R shoulder abd without pain. Florist'S Decorator Goals: In 4-6 weeks, patient will: 1. [...] (initiated ), manual therapy PRN, modalities PRN. [id number] Elpidio Russo MD Sports Medicine, [address] [address] 09/16/2020 07:28:55 09/17/2020 08:47:47 Shoulder pain 87601469 M25.511 Kenrick is a 45-year-ol d male [...] from a subacromia l corticoste roid injection. [id number] Rasheed Hendricks MD , [facility], [address] [place] [address] 01/01/2021 08:48:45 01/02/2021 14:57:20 Adult health examination 578402687 Z00.00 See Risk Assessment and Lifestyle Change Counseling section above. Home/vehic le safety discussed. Counseling 409953887 Z71 .9 including cardiovasc ular risk reduction counseling Depression screening 171 393954 Z13.31 depression screening tool administer ed, entered into emr, scored and discussed, time greater than 7.5 minutes Screening for alcohol abuse 746105830 Z13.39 Blepharospasm 61818747 G 24.5 Occasional right lower lid spasms. Check labs. EOMI. Pain of ri ght shoulder joint 7983275802 4599230 M25.511 Doing better. Had one virtual PT session. Discussed in-person evaluation if worsening symptoms. WIll monitor. Home exercises. Anxiety 44045089 F41.9 Increased anxiety with flying and driving. Previously tried Alprazolam , but caused significan t sedation. Trial of Propranolo l discussed. Potential adverse effects reviewed. Advised to contact the clinic if no improvemen t. Sleep apnea 40907426 G47 .30 Loud snoring and daytime somnolence . Referral for PSG. [id number] Shona Harrell MD FP, [facility], [address] [place] [address] 06/16/2021 09:17:12 06/18/2021 13:35:25 Screening for disorder 422532303 Z11.59 Fear of flying 787546465 F40.243 Reviewed side effects, public health concerns, dosing, Advised try before your trip so you know how you react to the medication [id number] ROBERT Patrick FP, [facility], [address] [place] [address] 11/06/2021 11:32:00 11/12/2021 16:01:53 Screening for malignant neoplasm of colon 517316848 Z12.11 pt will discuss with provider at upcoming pha Backache 628659482 M54.9 by hx exam- suggests muscle strain- sx tx ice alternatin g with heat, f/u if not improving in coming 1-2 wks-sooner any worsening Kidney stone 84999376 N2 0.0 PMH- UA negative for any blood- no pain in flank area [id number] Shona Harrell MD , [facility], [address] [place] [address] 01/05/2022 10:18:00 01/05/2022 11:10:17 Adult health examination 802357184 Z00.00 please make an eye exam. you are scheduled for your colonoscop y. Your walking daily with your will prolong your life! Talked about maintainin g current weight rather than continuing to gain Counseling 346161753 Z71 .9 including cardiovasc ular risk reduction counseling Depression screening 171 953068 Z13.31 depression screening tool administer ed, entered into emr, scored and discussed, time greater than 7.5 minutes Screening for alcohol abuse 057062013 Z13.39 Sleep apnea 01255077 G47 .30 Please contact Sleep Medicine; your test was positive and they did recommend treatment [id number] Leticia Espitia MD , [facility], [address] [place] [address] 07/22/2022 14:05:08 07/22/2022 15:41:42 Pain in throat 706368840 R07.0 sore throatstar arnulfo mild URI congestion [...] to sleepf/u if new or concerning sx [id number] Kristy Gordillo NP , [facility], [address] [place] [address] 08/18/2022 09:28:53 08/18/2022 10:36:44 Active or passive immunization 346597153 Z23 Tetanus administer ed today Erectile dysfunction 860 754932 F52.21 Ongoing since logistics solution manager y sx startedDis cussed options and pt [...] much as one full tablet. Cold hands 829790906 R20 .8 No personal or family hx of raynauds. Obstructiv e sleep apnea syndrome 06359271 G47.33 Had eval in September 2021, was dx with mild to moderate sleep apneaSome question as to whether current dizziness and ?circulato ry issues could be as a result of untreated moderate sleep apneaPt given phone number for Sleep Medicine and encouraged to f/u Postural dizziness 64747 7008 R42 Negative orthostati cs. 120/68 (lying down) 118/68 (standing) NL PEEncourag ed f/u with PCP, encouraged pt to f/u re untreated sleep apnea and we may consider neuro or vascular referral if no sx improvemen t with acquisitio n of CPAP [id number] Shona Harrell MD , [facility], [address] [place] [address] 01/08/2023 09:01:24 01/08/2023 15:36:51 Adult health examination 881170354 Z00.00 please make an eye exam. Your walking daily with your will prolong your life! Depression screening 171 413934 Z13.31 depression screening tool administer ed Screening for alcohol abuse 463689154 Z13.39 Alcohol use screening tool administer ed Anxiety 91737861 F41.9 Discussed options such as propranolo l, benzo's, SSRI's. Discussed sedation and addictive potential of alprazolam . Reviewed mediation, relation breathing. You want to think about it and get back to me if you are interested in new med [id number] KENRICK COPPOLA DO , [facility], [address] [place] [address] 08/12/2023 07:50:40 08/12/2023 13:33:24 Pain of right shoulder joint 7436804798 6705348 M25.511 48 year old male presenting for shoulder pain that began following free weight lifting exercise during pandemic. PE notable for Positive vera testing. We discussed baseline shoulder imaging and referral to physical therapy to which patient was agreeable. Patient can utilize NSAIDs as needed for discomfort . Advised icing at the end of each day for 15 minutes following activity [id number] Apolonia Andino, PT Physical Therapy, [address] [address] 09/28/2023 15:48:14 10/01/2023 09:51:28 Pain of right shoulder joint 2537754868 7986963 M25.511 Patient is a 48-year old male [...] Perform right shoulder abduction without painful arc. Group Home GoalsIn 8 weeks, patient will:1. Demonstrat e [...] manual therapy PRN, modalities PRN, taping PRN. [id number] Apolonia Andino, PT Physical Therapy, [address] [address] 10/06/2023 13:54:32 10/08/2023 07:37:49 Pain of right shoulder joint 2476305479 4145499 M25.511 Treatment Plan: Patient to return for 8 visits over 8 weeks. We expect significan t change in pain, impairment and function in this time frame. Treatment to Include: Continuing assessment , therapeuti c exercise, neuromuscu lar re-educati on, patient education, HEP (initiated ), manual therapy PRN, modalities PRN, taping PRN. [id number] Apolonia Andino, PT Physical Therapy, [address] [address] 10/13/2023 08:49:29 10/14/2023 08:09:20 Pain of right shoulder joint 6883929841 6656818 M25.511 Treatment Plan: Patient to return for 8 visits over 8 weeks. We expect significan t change in pain, impairment and function in this time frame. Treatment to Include: Continuing assessment , therapeuti c exercise, neuromuscu lar re-educati on, patient education, HEP (initiated ), manual therapy PRN, modalities PRN, taping PRN. [id number] Apolonia Andino, PT Physical Therapy, [address] [address] 10/20/2023 08:54:23 10/20/2023 11:11:19 Pain of right shoulder joint 8510388007 2502242 M25.511 Treatment Plan: Patient to return for 8 visits over 8 weeks. We expect significan t change in pain, impairment and function in this time frame. Treatment to Include: Continuing assessment , therapeuti c exercise, neuromuscu lar re-educati on, patient education, HEP (initiated ), manual therapy PRN, modalities PRN, taping PRN. [id number] Apolonia Andino, PT Physical Therapy, [address] [address] 10/27/2023 08:50:25 10/28/2023 09:46:42 Pain of right shoulder joint 7762830735 [id number] M25.511 Treatment Plan: Patient to return for 8 visits over 8 weeks. We expect significan t change in pain, impairment and function in this time frame. Treatment to Include: Continuing assessment , therapeuti c exercise, neuromuscu lar re-educati on, patient education, HEP (initiated ), manual therapy PRN, modalities PRN, taping PRN. [id number] ROMAINE LAO, [employer] , [facility], [address] [place] [address] 06/06/2024 09:17:20 06/07/2024 09:09:54 Active or passive immunization 241079602 Z23 Flu updated Skin lesion 89356014 L98 .9 [place] macule with flaky border on the arm, [...] Bray Member ID Guarantor Name 10/06/2023 1 [facility] [place] [facility] (HMO) [id number] Kenrick M Darvin [id number] 2 Kenrick M Darvin 10/13/2023 1 [facility] [place] [facility] ([employer]) [id number] Kenrick M Darvin [id number] 2 Kenrick M Darvin 10/20/2023 1 [facility] [facility] [employer] [place] (HMO) [id number] Kenrick M Darvin [id number] 2 Kenrick M Darvin 10/27/2023 1 [facility] [employer] [facility] [employer] [facility] [place] (H[employer]) [id number] Kenrick M Darvin [id number] 2 Kenrick M Darvin 06/06/2024 1 [facility] [employer] [facility] [employer] [place] (H[employer]) [id number] Kenrick M Darvin [id number] 2 Kenrick M Darvin Notes Date Note [...] itchiness, or other symptoms. ROMAINE CHOE , [facility], [place], [address], [facility] 06/06/2024 09:53:08
[2024-08-24] MEDS: Metoclopramide HCl 10 MG/2 ML VIAL IVPUSH (16:57)
[2024-08-24] MEDS: diphenhydrAMINE HCL 50 MG/ML VIAL 25 MG IVPUSH (16:57)
[2024-08-24 17:52] VITALS: BP 107/54; PULSE 72; RESP 18; TEMP 36.7; O2SAT 98
--- NOTE | 2024-08-24 18:44 | P.HPHOSP_ITS ---
History of Present Illness Date of Service: 08/24/24 Attending physician on admission: Darwin Ramirez Chief Complaint: Worsening cat bite Pt is a 49-year-old male with a PMH significant for?mood disorder who presents to the ED with?worsening cat bite that occurred 2 days prior. Pt previously presented to the emergency room on 08/22/2024 after attempting to pet a stray cat that bit him on the forearm. Vaccination status of cat unknown. 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 Pt was was given 1 dose of rabies vaccine in the ED and discharged home on Augmentin x5 days and told to return to the ED if erythema or pain worsened. Pt reports last night pain in forearm increased especially with flexion of wrist. Overall forearm feels painful and stiff. Does not radiate up arm. No purulent drainage. Denies fever, chills, abdominal pain. Of note, pt had suspected vasovagal response while in the ED getting blood drawn in triage. Pt apparently became diaphoretic and syncopized while in the chair. One episode of bilious emesis when he regained consciousness. Pt denies similar symptom before. Also denies nausea, vomiting prior to ED episode. No chest pain/pressure, palpitations. Denies shortness or breath or difficulty breathing. In the ED pt with slightly soft BP of 107/54, vitals otherwise stable and WNL. Labs were grossly unremarkable and around baseline for pt. No leukocytosis. Stable H&H. No significant electrolyte abnormalities. Renal and hepatic function WNL. Lactic acid WNL. Pt was treated with ondansetron, IVF, metoclopramide, diphenhydramine, and Unasyn. Pt will be admitted to the hospital for treatment and further evaluation of worsening cellulitis of right forearm secondary to cat bite that failed outpatient therapy. Review of Systems 2 Review of Systems: Negative except for that which is stated in the HPI. [facility] Social History Unable to assess alcohol history related to: Unknown Smoked in Last 30 Days: No Use of substances other than those prescribed or required for medical reasons: No Advance Directives: Yes Advance Directives Information Provided: Yes Advance Directives on File: No Meds Allergies Allergy/AdvReac Type Severity Reaction Status Date / Time morphine [MORPHINE] Allergy Unknown HIVES Verified 08/24/24 14:54 Home Medications ?Medication ?Instructions ?Recorded ?Confirmed ?Last Taken ?Type multivitamin with minerals-folic 2 tab PO DAILY 08/24/24 08/24/24 08/24/24 History acid 200 mcg chewable tablet (Men's Daily Gummies) sertraline 25 mg tablet 25 mg PO DAILY 08/24/24 08/24/24 08/24/24 History Physical Exam 2 Vital Signs and Narrative: Vital Signs: Last Vital Signs Temp 98.1 F 08/24/24 17:52 Pulse 72 08/24/24 17:52 Resp 18 08/24/24 17:52 BP 107/54 L 08/24/24 17:52 Pulse Ox 98 08/24/24 17:52 O2 Del Method Room Air 08/24/24 17:52 BMI result Body Mass Index 28.4 General: AOx3, no acute distress Resp: CTA bilaterally CVS: S1, S2, RRR GI: +BS, NT, no distention Skin: Warm, dry Neuro: Cranial nerves II-XII grossly intact bilaterally. Motor grossly intact bilaterally Extremities: Right dorsal forearm with 2 puncture wounds with surrounding warmth and erythema. No purulent drainage, induration, or fluctuance noted. Tender to palpation. No significant reduced range of motion with flexion or extension of wrist or fingers. As pictured below. Psych: Appropriate affect Results Labs 08/24/24 15:11 08/24/24 15:11 Labs: Laboratory Results - last 24 hr 08/24/24 08/24/24 15:11 15:28 MCV 88.2 MCH 30.8 MCHC 34.9 RDW 12.2 Plt Count 204 MPV 9.7 Immature Gran % (Auto) 0.3 Neut % (Auto) 57.0 Lymph % (Auto) 29.2 [place] % (Auto) 9.9 Eos % (Auto) 3.0 Baso % (Auto) 0.6 Lymph # (Auto) 2.0 [place] # (Auto) 0.7 Eos # (Auto) 0.2 Baso # (Auto) 0.0 Abs Immat Gran (auto) 0.02 Absolute Neuts (auto) 4.0 Absolute Nucleated RBC 0.000 Nucleated RBC % (auto) 0.0 Anion Gap 14 Estim Creat Clear Calc 119.0 Estimated GFR > 60 POC Glucose 130 H Random Glucose 103 Lactic Acid 1.4 Calcium 10.2 Total Bilirubin 0.5 AST 31 ALT 37 Alkaline Phosphatase 91 Total Protein 8.0 Albumin 4.5 Assessment and Plan (1) Cat bite: Status: Acute (2) Cellulitis: Status: Acute Plan Pt is a 49-year-old male with a PMH significant for?mood disorder who presents to the ED with?worsening cat bite that occurred 2 days prior. Pt will be admitted to the hospital for treatment and further evaluation of worsening cellulitis of right forearm secondary to cat bite that failed outpatient therapy. Right forearm cellulitis Secondary to cat bite from straight animal on 08/22/2024 Seen in the ED on 08/22 and started on Augmentin p.o. Symptoms worsened with increasing pain, stiffness, and difficulty moving despite adherence to outpatient antibiotics No sepsis Will treat with Unasyn IV, started 08/24/2024 Rabies vaccination Bite from Street cat with unknown vaccination status Pt previously vaccinated for rabies in the early Pt received 1st dose of rabies booster, scheduled for 2nd and last rabies booster dose tomorrow on 08/25/2024 Contact [facility] tomorrow to arrange for last rabies booster dose Mood disorder Continue sertraline Full Code Attending:?Dr. Ramirez DVT Prophylaxis: Pt ambulatory without restrictions Pt will require a hospitalization of at least two nights for treatment and further evaluation of right forearm cellulitis secondary to cat bite that failed outpatient therapy and requires IV antibiotics. Quality Stroke Does the patient have a stroke diagnosis?: No VTE Prior VTE?: No VTE Risk Level:: Medical - moderate - high VTE Device Contraindication: Treatment Not Indicated VTE Drug Contraindication: Treatment Not Indicated
--- NOTE | 2024-08-24 18:55 | PHA.MEDREC ---
Addendum entered by Shira Fuchs RPh 08/24/24 19:28: Reviewed by [facility] Original Note: Pharmacy Consult ? Medication Reconciliation Pharmacy has completed the medication reconciliation. Spoke with patient and patient spouse at bedside. The patient confirmed he is taking the Sertraline 25mg tab once daily. The patients spouse confirmed he has started taking the Amoxicillin-pot Clavulanate 875-125mg on Wednesday. The patient confirmed he took his medications this morning.
[2024-08-24 20:36] VITALS: BP 109/76; PULSE 78; RESP 16; TEMP 37; O2SAT 97
[2024-08-24 20:46] LABS: Glucose, Whole Blood 105 mg/dL (60-115)
--- NOTE | 2024-08-24 21:47 | MHC.EDTECH ---
This pct assumed care of Patient at 1900 ,vitals taken ,blood sugar check ,Patient a&o ,Patient is staying with Patient ,Recliner was given to Patient .
[2024-08-24 23:30] VITALS: BP 100/59; PULSE 71; RESP 16; TEMP 36.8; O2SAT 95
--- NOTE | 2024-08-24 23:36 | MHC.EDTECH ---
mid night rounding done ,vitals taken ,Patient resting quietly with eyes closed ,no apparent distress noted ,Plan of care continue .
[2024-08-25 04:32] VITALS: BP 95/58; PULSE 72; RESP 16; TEMP 36.8; O2SAT 97
[2024-08-25] MEDS: Ampicillin Sodium/Sulbactam Na 3 GM in 0.9 % Sodium Chloride 100 ML IV ×2 (04:45→10:15)
[2024-08-25 06:27] VITALS: BP 95/65; PULSE 56; RESP 15; TEMP 36.8; O2SAT 97
[2024-08-25 08:39] VITALS: BP 114/65; PULSE 72; RESP 16; TEMP 36.6; O2SAT 94
[2024-08-25] MEDS: 0.9 % Sodium Chloride Flush 3 ML SYRINGE IVFLUSH (09:09)
[2024-08-25] MEDS: Multivitamin TABLET 2 TAB PO (09:09)
[2024-08-25] MEDS: Sertraline HCL 25 MG TABLET PO (09:09)
--- NOTE | 2024-08-25 09:44 | MHC.CM.PN ---
S/P Cat scratch/cellulitis Lives with spouse. Independent with all functional mobility. PCP Shona Harrell Declined the offer to document a HCP DP home self care. Patient is discharged today with PO ABX. His will provide transportation home.
--- NOTE | 2024-08-25 09:44 | PM.DS ---
DS: Providers Provider Date of Service: 08/25/24 Date of admission: 08/24/24 19:15 Date of discharge: 08/25/24 Primary care physician: Shona Harrell MD DS: Diagnosis Discharge Diagnosis (1) Cat bite: Status: Acute (2) Cellulitis: Status: Acute DS: Summary Hospital Course Hospital Course: History of presenting illness: Date of Service: 08/24/24 Attending physician on admission: Darwin Ramirez Chief Complaint: Worsening cat bite Pt is a 49-year-old male with a PMH significant for?mood disorder who presents to the ED with?worsening cat bite that occurred 2 days prior. Pt previously presented to the emergency room on 08/22/2024 after attempting to pet a stray cat that bit him on the forearm. Vaccination status of cat unknown. 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 Pt was was given 1 dose of rabies vaccine in the ED and discharged home on Augmentin x5 days and told to return to the ED if erythema or pain worsened. Pt reports last night pain in forearm increased especially with flexion of wrist. Overall forearm feels painful and stiff. Does not radiate up arm. No purulent drainage. Denies fever, chills, abdominal pain. Of note, pt had suspected vasovagal response while in the ED getting blood drawn in triage. Pt apparently became diaphoretic and syncopized while in the chair. One episode of bilious emesis when he regained consciousness. Pt denies similar symptom before. Also denies nausea, vomiting prior to ED episode. No chest pain/pressure, palpitations. Denies shortness or breath or difficulty breathing. In the ED pt with slightly soft BP of 107/54, vitals otherwise stable and WNL. Labs were grossly unremarkable and around baseline for pt. No leukocytosis. Stable H&H. No significant electrolyte abnormalities. Renal and hepatic function WNL. Lactic acid WNL. Pt was treated with ondansetron, IVF, metoclopramide, diphenhydramine, and Unasyn. Pt will be admitted to the hospital for treatment and further evaluation of worsening cellulitis of right forearm secondary to cat bite that failed outpatient therapy. Hospital course: 49-year-old male with a PMH significant for?mood disorder who presents to the ED with?worsening cat bite that occurred 2 days prior. Pt will be admitted to the hospital for treatment and further evaluation of worsening cellulitis of right forearm secondary to cat bite that failed outpatient therapy. Right forearm cellulitis Secondary to cat bite on 08/22/2024, Seen in the ED on 08/22 and started on Augmentin p.o.symptoms worsened with increasing pain, stiffness, and difficulty moving despite adherence to outpatient antibiotics, therefore admitted to med floor treated with IV Unasyn, had no sepsis patient responded well to above treatment redness and pain has significantly improved therefore discharged home on by mouth Augmentin 1 tablet twice daily patient has prescription for 5 days, additional 3 days of Augmentin called in to be taken if noted to have persistent redness/pain. Rabies vaccination Bite from Stray cat with unknown vaccination status, Pt previously vaccinated for rabies in the early , received 1st dose of rabies booster, scheduled for 2nd and last rabies booster dose on 08/25/2024. Mood disorder Continue sertraline Time Attestation Discharge Coordination Time (in mins): 40 Quality: Safe Use of Opioids Does Pt have an Active Cancer Diagnosis on the Problem List?: No Quality: Stroke Does the patient have a stroke diagnosis?: No Physical Exam Vital Signs: Vital Signs: Last Vital Signs Temp 98 F 08/25/24 08:39 Pulse 72 08/25/24 08:39 Resp 16 08/25/24 08:39 BP 114/65 08/25/24 08:39 Pulse Ox 94 08/25/24 08:39 O2 Del Method Room Air 08/25/24 08:39 BMI result Body Mass Index 28.4 Const: Other: General: AOx3, no acute distress Resp: CTA bilaterally CVS: S1, S2, RRR GI: +BS, NT, no distention Skin: Warm, dry Neuro: Nonfocal Extremities: Right dorsal forearm with 2 puncture wounds with improved erythema, no purulent drainage, induration, or fluctuance noted. Good range of motion at wrist and elbow. Psych: Appropriate affect DS: Data Data Completed and Pending Labs on day of discharge: Laboratory Results - last 24 hr 08/24/24 08/24/24 08/24/24 15:11 15:28 20:42 WBC 7.0 RBC 5.59 Hgb 17.2 Hct 49.3 MCV 88.2 MCH 30.8 MCHC 34.9 RDW 12.2 Plt Count 204 MPV 9.7 Immature Gran % (Auto) 0.3 Neut % (Auto) 57.0 Lymph % (Auto) 29.2 [place] % (Auto) 9.9 Eos % (Auto) 3.0 Baso % (Auto) 0.6 Lymph # (Auto) 2.0 [place] # (Auto) 0.7 Eos # (Auto) 0.2 Baso # (Auto) 0.0 Abs Immat Gran (auto) 0.02 Absolute Neuts (auto) 4.0 Absolute Nucleated RBC 0.000 Nucleated RBC % (auto) 0.0 Sodium 140 Potassium 4.1 Chloride 103 Carbon Dioxide 27 Anion Gap 14 BUN 19 H Creatinine 0.83 Estim Creat Clear Calc 119.0 Estimated GFR > 60 POC Glucose 130 H 105 Random Glucose 103 Lactic Acid 1.4 Calcium 10.2 Total Bilirubin 0.5 AST 31 ALT 37 Alkaline Phosphatase 91 Total Protein 8.0 Albumin 4.5 Discharge Plan Discharge Anticipated Discharge Date/Time: 08/25/24 08:59 Patient Disposition: Home, Self-Care Discharge Diagnosis: Right forearm cellulitis due to cat bite Referrals: Shona Harrell MD [Primary Care Provider] - 1 Week Discharge Medications: New amoxicillin-pot clavulanate 875-125 mg tablet 1 tab PO BID Qty: 6 0RF Continued sertraline 25 mg tablet 25 mg PO DAILY multivit with min-folic acid [Men's Daily Gummies] 200 mcg Tablet,Chewable 2 tab PO DAILY amoxicillin-pot clavulanate 875-125 mg tablet 1 tab PO BID 5 Days Qty: 9 0RF Discharge Orders: Discharge Order (Routine); Ordered 08/25/24 Ordered By: Darwin Ramirez Diet: Advance to usual diet Activity on Discharge: As tolerated Stand Alone Forms: Patient Portal Discharge page Print Language: Faroese Care Plan Goals: Right forearm cellulitis improving take Augmentin 1 tablet twice daily If noted to have persistent redness take additional Augmentin 1 tablet twice daily called into your pharmacy. Health Concerns: Continue home medication Plan of Treatment: Outpatient follow-up with primary care physician Assessment: As above Patient Instructions: Animal Bite (DC), Cellulitis (DC)
== END 2024-08-25 10:59 | disposition home or self-care (01) | DRG 383 ==
LOC: HO.ED 18:08 → HO.EDOVER 19:53 → HO.S3 08-25 07:25
PROVIDERS: Registered Nurse Emergency; Admitting Provider Student in an Organized Health Care Education/Training Program; Emergency Provider Emergency Medicine; PCP Family Medicine; Visit Provider Hospitalist
DX: L03.113 Cellulitis of right upper limb (principal); F39 Unspecified mood [affective] disorder; S51.831A Puncture wound without foreign body of right forearm, initial encounter; W55.01XA Bitten by cat, initial encounter; Z23 Encounter for immunization; Z20.3 Contact with and (suspected) exposure to rabies; Z79.899 Other long term (current) drug therapy
CPT/HCPCS: 36415; 80053; 82947; 83605; 85025; 87040; 93005; 99221; 99285; J0295; J1200; J2765

== ENCOUNTER → 2024-08-24 15:33 | Outpatient (BNV) | payer OTHER, SELFPAY | PROVIDERS: Emergency Provider Emergency Medicine; PCP Family Medicine; Visit Provider Internal Medicine | DX: R94.31 Abnormal electrocardiogram [ECG] [EKG] (principal); R55 Syncope and collapse | CPT/HCPCS: 93010 ==

== ENCOUNTER → 2024-08-24 19:15 | Outpatient (BNV) | payer OTHER, SELFPAY | PROVIDERS: Admitting Provider Student in an Organized Health Care Education/Training Program; Emergency Provider Emergency Medicine; PCP Family Medicine; Visit Provider Student in an Organized Health Care Education/Training Program | DX: L03.113 Cellulitis of right upper limb (principal); W55.01XA Bitten by cat, initial encounter | CPT/HCPCS: 99222; 99239 ==

== ENCOUNTER 2024-08-25 11:02 | Outpatient (RCR) | payer OTHER, SELFPAY ==
[2024-08-25 11:55] VITALS: PULSE 62; RESP 16; TEMP 36.8; O2SAT 97
[2024-08-25 12:00] VITALS: BP 129/86
[2024-08-25] MEDS: Rabies Vaccine (PCEC)/PF 1 ML VIAL IM (12:03)
== END 2024-08-25 12:06 | disposition home or self-care (01) ==
LOC: HO.INF 11:02
PROVIDERS: Visit Provider Emergency Medicine
DX: Z20.3 Contact with and (suspected) exposure to rabies (principal)
CPT/HCPCS: 90471; 90675